=== PATIENT | male | born 1995 | race Asian ===

== ENCOUNTER 2016-08-03 08:16 | Emergency (ER) | payer OTHER ==
[2016-08-03 08:35] VITALS: BP 138/82; PULSE 58; RESP 20; TEMP 97.7; O2SAT 98
[2016-08-03] MEDS ORDERED: OFLOXACIN 0.3% SOLN PREPACK OPHT.BTL TAKEHOME ONE (08:49)
--- NOTE | 2016-08-03 08:55 | UCPHY ---
H & P Patient Type: New Chief Complaint Nursing Narrative: B eye redness, crusting since Wednesday Time Seen by Provider: 08/03/16 08:44 HPI/ROS: CHIEF COMPLAINT: Bilateral eye redness and discharge HISTORY OF PRESENT ILLNESS: Patient is a 21-year-old healthy man who comes to the Urgent Care complaining of bilateral eye redness and discharge for the last 3 days. He states that his eyes were glued shut when he woke up. He has been using eyedrops with moderate improvement. He thought that it may have been from smoking marijuana but it seems worse than usual. No visual changes. No fevers. No sinus infection. REVIEW OF SYSTEMS: Constitutional: denies: chills, fever, recent illness, recent injury EENTM: set see HPI Respiratory: denies: cough, shortness of breath Cardiac: denies: chest pain, irregular heart rate, lightheadedness, palpitations Gastrointestinal/Abdominal: denies: abdominal pain, diarrhea, nausea, vomiting, blood streaked stools Genitourinary: denies: dysuria, frequency, hematuria, pain Musculoskeletal: denies: joint pain, muscle pain Skin: denies: lesions, rash, jaundice, bruising Neurological: denies: headache, numbness, paresthesia, tingling, dizziness, weakness Hematologic/Lymphatic: denies: blood clots, easy bleeding, easy bruising Immunologic/allergic: denies: HIV/AIDS, transplant EXAM: GENERAL: Well-appearing, well-nourished and in no acute distress. HEAD: Atraumatic, normocephalic. EYES: conjunctival injection, mild discharge, Pupils equal round and reactive to light, extraocular movements intact, ENT: TMs normal, nares patent, oropharynx clear without exudates. Moist mucous membranes. NECK: Normal range of motion, supple without lymphadenopathy or JVD. LUNGS: Breath sounds clear to auscultation bilaterally and equal. No wheezes rales or rhonchi. HEART: Regular rate and rhythm without murmurs, rubs or gallops. ABDOMEN: Soft, nontender, normoactive bowel sounds. No guarding, no rebound. No masses appreciated. BACK: No CVA tenderness, no spinal tenderness, step-offs or deformities EXTREMITIES: Normal range of motion, no pitting or edema. No clubbing or cyanosis. NEUROLOGICAL: Cranial nerves II through XII grossly intact. Normal speech, normal gait. 5/5 strength, normal movement in all extremities, normal sensation PSYCH: Normal mood, normal affect. SKIN: Warm, dry, normal turgor, no visible rashes or lesions. Source: Patient Exam Limitations: No limitations - Personal History Current Tetanus/Diphtheria Vaccine: Yes - Medical/Surgical History Hx Asthma: Yes Hx Diabetes: No Hx Cardiac Disease: No Hx Renal Disease: No Hx Cirrhosis: No Hx Alcoholism: No - Family History Significant Family History: No pertinent family hx - Social History Smoking Status: Never smoked Alcohol Use: Occasionally Drug Use: Marijuana Constitutional: Initial Vital Signs Temperature (C) 36.5 C 08/03/16 08:33 Heart Rate 58 L 08/03/16 08:33 Respiratory Rate 20 08/03/16 08:33 Blood Pressure 138/82 H 08/03/16 08:33 O2 Sat (%) 98 08/03/16 08:33 O2 Delivery Mode Room Air Allergies/Adverse Reactions: No Known Allergies Allergy (Unverified 08/03/16 08:32) Home Medications: Medication Instructions Recorded Proair Hfa Icu (*) 08/03/16 Singulair 08/03/16 Medical Decision Making ED Course/Re-evaluation: 8:50 a.m. the patient has conjunctivitis. I will treat him with antibiotic drops. He does not wear contacts or glasses. His visual acuity is intact. He is happy with this plan and declines further workup or testing. We discussed not exposing others. Differential Diagnosis: Partial list of the Differential diagnosis considered include but were not limited to; corneal abrasion, conjunctivitis, viral conjunctivitis and although unlikely based on the history and physical exam, I also considered iritis, glaucoma. I discussed these differential diagnoses and the plan with the patient as well as the usual and expected course. The patient understands that the diagnosis is provisional and that in medicine we are not always correct and that further workup is often warranted. Usual and customary warnings were given. All of the patient's questions were answered. The patient was instructed to return to the emergency department should the symptoms at all worsen or return, otherwise to followup with the physician as we discussed. - Data Points Medications Given: Discontinued Medications Ofloxacin (Ocuflox 0.3% Opht Drops Prepack) 1 btl TAKEWINDY EDPETRONAW ONE Stop: 08/03/16 08:50 Last Admin: 08/03/16 08:56 Dose: 1 btl Departure - Departure Disposition: Home, Routine, Self-Care Clinical Impression: Conjunctivitis Qualifiers: Conjunctivitis type: acute Acute conjunctivitis type: unspecified Laterality: bilateral Qualifier Code: (H10.33) Unspecified acute conjunctivitis, bilateral Condition: Fair Instructions: Conjunctivitis (ED) Additional Instructions: Use 2 eye drops every 4 hours for 4 days. Referrals: NONE *PRIMARY CARE P,. [Primary Care Provider] - As per Instructions Alejo Mesa MD [Medical Doctor] - As per Instructions - PQRS PQRS Measurement: Not applicable
== END 2016-08-03 08:58 | disposition home or self-care (01) ==
LOC: CED 08:16
DX: H10.33 Unspecified acute conjunctivitis, bilateral (principal); F12.90 Cannabis use, unspecified, uncomplicated
CPT/HCPCS: 99204-PO; G0463-PO